=== PATIENT | female | born 1960 | race African-American/Black ===

== ENCOUNTER → 2021-10-16 | Outpatient (CLI) | payer OTHER ==
[2014-12-20 15:20] VITALS: BP 132/84
[~2021-10-16] MED LIST: ALEN70TA71 PO; CLON0.1T PO; CYAN-25 PO; MULT-445 PO; OMEP20TA8 PO; OXYC1TAB15 PO; POLY2500 MC
--- NOTE | 2021-10-16 16:27 | RAD ---
Bilateral digital screening 2-D and 3-D (digital breast tomosynthesis) mammogram: Reason for examination: Routine screening. Comparison: Mammogram from 01/19/2016. Interpretation was made with the benefit of CAD. FINDINGS: Breast density: Category B. There are scattered areas of fibroglandular density. No suspicious breast mass, malignant appearing calcifications, or architectural distortion is seen. IMPRESSION: No evidence of malignancy. Assessment: BI-RADS 1. Negative. Recommendation: Routine screening mammograms. The patient will receive a letter with the results in the mail. Patient information will be entered i nto the mammography reminder system with a target recall date for the next mammogram. A reminder martin er will be generated. Electronically signed by: Meeta Esparza MD (10/16/2021 4:24 PM) [id number]
== END ==
LOC: MAMMO 13:33
PROVIDERS: ATTEND Nurse Practitioner Family
DX: Z12.31 Encounter for screening mammogram for malignant neoplasm of breast (principal)
CPT/HCPCS: 77063; 77067